=== PATIENT | female | born 1970 | race Caucasian/White ===

== ENCOUNTER 2020-12-17 18:15 | Emergency (ER) | payer MEDICAID ==
[~2020-12-17] VITALS: Ht 170.2 cm; Wt 99.2 kg
[2020-12-17 19:21] VITALS: BP 142/83
[2020-12-17] MEDS ORDERED: NAPR-56 PO (23:01)
[2020-12-17] MEDS ORDERED: DICL20GE TOP (23:01)
--- NOTE | 2020-12-17 23:18 | NUR ---
pt seen and dc'd by provider
== END 2020-12-17 23:20 | disposition home or self-care (01) ==
LOC: ER 18:16
DX: S89.91XA Unspecified injury of right lower leg, initial encounter (principal); M25.561 Pain in right knee; Z79.899 Other long term (current) drug therapy; W19.XXXA Unspecified fall, initial encounter; Y93.01 Activity, walking, marching and hiking; Y92.89 Other specified places as the place of occurrence of the external cause; Y99.8 Other external cause status
CPT/HCPCS: 73564; 99283

== ENCOUNTER 2021-01-27 12:48 | Emergency (ER) | payer MEDICAID ==
[~2021-01-27] VITALS: Ht 170.2 cm; Wt 79.5 kg
[~2021-01-27 12:48] MED LIST: DICL20GE TOP
[2021-01-27 13:31] VITALS: BP 137/89
[2021-01-27 14:30] LABS: URINE HCG NEGATIVE (NEG)
[2021-01-27 14:36] LABS: CLARITY,URINE SLIGHTLY CLOUDY (Clear); COLOR,URINE YELLOW (Yellow); GLUCOSE, URINE NEGATIVE (Neg); KETONES,URINE NEGATIVE (Neg); LEUKOCYTE ESTERASE ,URINE NEGATIVE (Neg); NITRITES, URINE NEGATIVE (Neg); OCCULT BLOOD,URINE NEGATIVE (Neg); PROTEIN,URINE NEGATIVE (Neg); UROBILINOGEN,URINE 0.2 E.U/dL (0.2-1.0)
[2021-01-27 14:37] LABS: UA COLLECTION TYPE CLN CATCH MIDSTREAM
[2021-01-27 14:41] LABS: MUCUS STRANDS NONE SEEN /LPF (Neg); SQUAMOUS EPITHELIAL CELL,UR MODERATE /LPF (FEW)
[2021-01-27 14:46] LABS: BACTERIA,URINE FEW /HPF (Neg); RBC,URINE 0-2 /HPF (0-2); WBC,URINE 0-4 /HPF (0-4)
== END 2021-01-27 19:15 | disposition left against medical advice (07) ==
LOC: ER 12:50
DX: N93.9 Abnormal uterine and vaginal bleeding, unspecified (principal); Z20.822 Contact with and (suspected) exposure to COVID-19
CPT/HCPCS: 81001; 81025